=== PATIENT | female | born 1950 | race Caucasian/White ===

== ENCOUNTER 2017-09-29 10:48 | Emergency (ER) | payer OTHER ==
[~2017-09-29] VITALS: Ht 167.6 cm; Wt 70.3 kg
[2017-09-29] MEDS ORDERED: ASPIR 8181 MG PO (10:57)
[2017-09-29] MEDS ORDERED: COZAAR 25 MG TA25 M1 PO (10:57)
[2017-09-29] MEDS ORDERED: LIPITOR 20 MG T20 M1 PO (10:58)
== END 2017-09-29 12:06 | disposition home or self-care (01) ==
LOC: ER 10:48
DX: S06.0X0A Concussion without loss of consciousness, initial encounter (principal); I10 Essential (primary) hypertension; E78.5 Hyperlipidemia, unspecified; Z87.891 Personal history of nicotine dependence; W01.0XXA Fall on same level from slipping, tripping and stumbling without subsequent striking against object, initial encounter; Y93.89 Activity, other specified; Y92.89 Other specified places as the place of occurrence of the external cause; Y99.8 Other external cause status